=== PATIENT | female | born 1940 | race Caucasian/White ===

== ENCOUNTER 2021-02-12 08:14 | Inpatient (IN) ==
[2021-02-12] MEDS ORDERED: Haloperidol Lactate 5 MG/ML VIAL IVP ONE ×2 (08:43→16:19)
[2021-02-12 09:20] LABS: Amorphous Sediment,Urine Few per hpf (None-Few); Bilirubin,Urine Negative (Negative); Blood,Urine Negative (Negative); Clarity,Urine Turbid (Clear); Color,Urine Light-Yellow (Yellow); Glucose,Urine (UA) Normal (Normal); Ketones,Urine Negative (Negative); Leukocyte Esterase,Urine Negative (Negative); Nitrite,Urine Negative (Negative); Protein,Urine Trace mg/dL (Neg-Trace); Specific Gravity,Urine 1.014 (1.010-1.025); Urobilinogen,Urine Normal (Normal); WBC,Urine 0-3 per hpf (0-3)
[2021-02-12 09:21] LABS: Basophils % 0.5 %; Eosinophils % 0.2 %; Hematocrit 35.3 % (35.3-44.9); Hemoglobin 11.9 g/dL (11.5-15.4); Immature Granulocytes % 0.3 % (0-4); Lymphocytes # 0.4 K/mcL (0.6-4.6); Lymphocytes % 6.6 %; Mean Corpuscular HGB Conc 33.7 g/dL (31.6-35.5); Mean Corpuscular Hemoglobin 28.5 pg (28.0-33.3); Mean Corpuscular Volume 84.7 fL (83.0-100.0); Mean Platelet Volume 9.7 fL (9.4-12.4); Monocytes # 0.2 K/mcL (0.0-1.3); Monocytes % 3.2 %; Neutrophils # 5.8 K/mcL (1.6-8.9); Platelet Count 188 K/mcL (140-400); Red Blood Count 4.17 M/mcL (3.82-4.97); Segmented Neutrophils % 89.2 %; White Blood Count 6.5 K/mcL (4.3-11.1)
[2021-02-12 09:28] LABS: INR 1.2; Prothrombin Time 13.6 Seconds (9.4-12.1)
[2021-02-12 09:31] LABS: Activated Partial Thrombo Time 31.4 Seconds (26.0-36.0)
[2021-02-12 09:34] LABS: Alanine Aminotransferase 12 Units/L (7-52); Albumin 4.3 g/dL (3.5-5.7); Albumin/Globulin Ratio 1.7 (1.1-2.2); Alkaline Phosphatase 87 Units/L (34-104); Aspartate Amino Transferase 21 Units/L (13-39); BUN/Creatinine Ratio 19 (6-26); Bilirubin,Direct 0.1 mg/dL (0.0-0.2); Bilirubin,Indirect 0.4 mg/dL (0.0-1.0); Bilirubin,Total 0.5 mg/dL (0.3-1.0); Blood Urea Nitrogen 13 mg/dL (8-23); Calcium 9.1 mg/dL (8.6-10.3); Carbon Dioxide 24 mEq/L (23-29); Chloride 93 mEq/L (98-107); Globulin 2.6 g/dL (2.4-3.5); Glucose 151 mg/dL (70-105); Osmolality,Calculated 269 (280-300); Potassium 3.7 mEq/L (3.5-5.1); Sodium 128 mEq/L (136-145); Total Protein 6.9 g/dL (6.4-8.9); Troponin I 0.03 ng/mL (< 0.04); eGFR For African Americans > 60 (> 60); eGFR For Non-African Americans > 60 (> 60)
[2021-02-12 11:49] LABS: Influenza A PCR Negative (Negative); Influenza B PCR Negative (Negative); Resp. Syncytial Virus PCR Negative (Negative)
[2021-02-12 11:57] LABS: SARS-CoV-2 by PCR (In House) Negative (Negative)
[2021-02-12] MEDS ORDERED: cefTRIAXone 2,000 MG in 0.9 % Sodium Chloride Mini Bag 100 ML IVPB ONE (12:28)
[2021-02-12] MEDS ORDERED: Naloxone 0.4 MG/ML INJ IVP PRN (13:24)
[2021-02-12 14:29] LABS: Thyroid Stimulating Hormone 1.876 mcIU/mL (0.340-5.600)
[2021-02-12 14:44] LABS: Folate > 22.3 ng/mL (3.0-16.0); Vitamin B12 817 pg/mL (250-1100)
[2021-02-12] MEDS ORDERED: 0.9 % Sodium Chloride 1,000 ML IVC SCH (15:00)
[2021-02-12] MEDS ORDERED: Vancomycin (wt based) 1,000 MG VIAL IVPB SCH (15:00)
[2021-02-12] MEDS ORDERED: Acyclovir 550 MG in D5% in Water 250 ML IVPB SCH ×2 (16:00→23:00)
[2021-02-12] MEDS ORDERED: Acyclovir 750 MG in D5% in Water 250 ML IVPB SCH (16:00)
[2021-02-12] MEDS ORDERED: Ampicillin 2 MG in 0.9 % Sodium Chloride Mini Bag 100 ML IVPB SCH (16:00)
[2021-02-12] MEDS ORDERED: Ampicillin 2,000 MG in 0.9 % Sodium Chloride Mini Bag 100 ML IVPB SCH (16:00)
[2021-02-12] MEDS: Ampicillin 2,000 MG in 0.9 % Sodium Chloride Mini Bag 100 ML IVPB SCH ×2 (18:38→21:41)
[2021-02-12] MEDS ORDERED: Acetaminophen 325 MG TABLET PO PRN (21:08)
[2021-02-12] MEDS: 0.9 % Sodium Chloride 1,000 ML IVC SCH (21:40)
[2021-02-12] MEDS: *HR* Heparin 5,000 UNIT/ML VIAL SQ SCH (22:21)
[2021-02-12] MEDS: Haloperidol Lactate 5 MG/ML VIAL IM PRN (22:36)
[2021-02-13] MEDS ORDERED: Acetaminophen IV 500 MG/50 ML BAG IVPB ONE (03:29)
[2021-02-13] MEDS: cefTRIAXone 2,000 MG in Water for inj. (sterile) 10 ML IVP SCH ×2 (04:28→15:27)
[2021-02-13] MEDS: Ampicillin 2,000 MG in 0.9 % Sodium Chloride Mini Bag 100 ML IVPB SCH ×4 (04:41→23:03)
[2021-02-13 04:43] LABS: Magnesium 1.2 mg/dL (1.6-2.6); Phosphorous 1.9 mg/dL (2.7-4.5)
[2021-02-13] MEDS: *HR* Heparin 5,000 UNIT/ML VIAL SQ SCH ×3 (06:25→21:04)
[2021-02-13] MEDS ORDERED: Haloperidol Lactate 5 MG/ML VIAL IVP ONE (08:44)
[2021-02-13 10:51] LABS: Red Blood Cell,CSF < 2000 RBC/mcL
[2021-02-13 10:52] LABS: Appearance,CSF Clear (Clear)
[2021-02-13 11:11] LABS: Glucose,CSF 76 mg/dL (40-70); Total Protein,CSF 28 mg/dL (15-45)
[2021-02-13 11:49] LABS: Adenovirus Not Detected (Not Detect); Bordetella Pertussis Not Detected (Not Detect); Chlamydophila pneumoniae Not Detected (Not Detect); Coronavirus 229E Not Detected (Not Detect); Coronavirus HKU1 Not Detected (Not Detect); Coronavirus NL63 Not Detected (Not Detect); Coronavirus OC43 Not Detected (Not Detect); Human Metapneumovirus Not Detected (Not Detect); Human Rhinovirus/Enterovirus Not Detected (Not Detect); Influenza A Subtype 2009 H1 Not Detected (Not Detect); Influenza B Not Detected (Not Detect); Mycoplasma pneumoniae Not Detected (Not Detect); Parainfluenza Virus 1 Not Detected (Not Detect); Parainfluenza Virus 2 Not Detected (Not Detect); Parainfluenza Virus 3 Not Detected (Not Detect); Parainfluenza Virus 4 Not Detected (Not Detect); Respiratory Syncytial Virus Not Detected (Not Detect); SARS-CoV-2 Not Detected (Not Detect)
[2021-02-13 14:18] LABS: BUN/Creatinine Ratio 23 (6-26); Blood Urea Nitrogen 15 mg/dL (8-23); Carbon Dioxide 23 mEq/L (23-29); Chloride 97 mEq/L (98-107); Glucose 131 mg/dL (70-105); Osmolality,Calculated 275 (280-300); Potassium 2.7 mEq/L (3.5-5.1); Sodium 131 mEq/L (136-145); eGFR For African Americans > 60 (> 60); eGFR For Non-African Americans > 60 (> 60)
[2021-02-13] MEDS ORDERED: Potassium Chloride 40 MEQ, Lidocaine 1% 2 ML in 0.9 % Sodium Chloride 500 ML IVPB ONE (15:01)
[2021-02-13] MEDS ORDERED: Perflutren Lipid Microsphere 1.3 ML in 0.9 % Sodium Chloride 8.7 ML IVP PRN (15:05)
[2021-02-13] MEDS: Acyclovir 550 MG in D5% in Water 250 ML IVPB SCH (17:30)
[2021-02-13] MEDS: 0.9 % Sodium Chloride 1,000 ML IVC SCH ×2 (20:26→20:27)
[2021-02-13] MEDS: *HR* Metoprolol 5 MG/5 ML VIAL IVP PRN (21:03)
[2021-02-14] MEDS: Haloperidol Lactate 5 MG/ML VIAL IM PRN (01:56)
[2021-02-14] MEDS: *HR* Metoprolol 5 MG/5 ML VIAL IVP PRN (02:14)
[2021-02-14] MEDS: cefTRIAXone 2,000 MG in Water for inj. (sterile) 10 ML IVP SCH ×2 (03:43→16:32)
[2021-02-14] MEDS: Ampicillin 2,000 MG in 0.9 % Sodium Chloride Mini Bag 100 ML IVPB SCH ×2 (03:48→16:31)
[2021-02-14] MEDS: Acyclovir 550 MG in D5% in Water 250 ML IVPB SCH (03:49)
[2021-02-14] MEDS: Acetaminophen 325 MG TABLET PO PRN ×2 (04:59→22:08)
[2021-02-14] MEDS: *HR* Heparin 5,000 UNIT/ML VIAL SQ SCH ×3 (05:00→22:05)
[2021-02-14] MEDS ORDERED: *HR* Metoprolol 5 MG/5 ML VIAL IVP PRN (08:37)
[2021-02-14] MEDS: Metoprolol XL (24 HR) Succ 25 MG TAB.ER.24H PO SCH (14:45)
[2021-02-14 14:47] LABS: Basophils % 0.2 %
[2021-02-14 14:53] LABS: Hematocrit 34.9 % (35.3-44.9); Immature Granulocytes % 0.6 % (0-4)
[2021-02-14 14:54] LABS: Hemoglobin 11.9 g/dL (11.5-15.4); Immature Platelets 2.2 % (1.1-6.1); Lymphocytes # 0.9 K/mcL (0.6-4.6); Lymphocytes % 7.4 %; Mean Corpuscular HGB Conc 34.1 g/dL (31.6-35.5); Mean Corpuscular Hemoglobin 28.7 pg (28.0-33.3); Mean Corpuscular Volume 84.3 fL (83.0-100.0); Monocytes % 7.7 %; Neutrophils # 10.5 K/mcL (1.6-8.9); Platelet Count 151 K/mcL (140-400); Red Blood Count 4.14 M/mcL (3.82-4.97); Red Cell Distribution Width 12.3 % (11.5-14.5); Segmented Neutrophils % 84.1 %; White Blood Count 12.5 K/mcL (4.3-11.1)
[2021-02-14 15:26] LABS: BUN/Creatinine Ratio 22 (6-26); Blood Urea Nitrogen 15 mg/dL (8-23); Calcium 8.7 mg/dL (8.6-10.3); Carbon Dioxide 21 mEq/L (23-29); Chloride 102 mEq/L (98-107); Glucose 137 mg/dL (70-105); Magnesium 1.6 mg/dL (1.6-2.6); Osmolality,Calculated 281 (280-300); Phosphorous 1.6 mg/dL (2.7-4.5); Potassium 2.7 mEq/L (3.5-5.1); Sodium 134 mEq/L (136-145); eGFR For African Americans > 60 (> 60); eGFR For Non-African Americans > 60 (> 60)
[2021-02-14] MEDS: 0.9 % Sodium Chloride 1,000 ML IVC SCH (16:36)
[2021-02-14] MEDS ORDERED: Potassium Chloride Elixir 20 MEQ/15 ML UDC PO ONE (16:48)
[2021-02-14 17:04] LABS: Platelet Estimate Normal (Normal)
[2021-02-14] MEDS: Budesonide/Formoterol 80/4.5 1 PUFF INH IH SCH (20:20)
[2021-02-14] MEDS: QUEtiapine Fumarate 25 MG TABLET PO SCH (22:06)
[2021-02-14] MEDS: Rivastigmine Tartrate (oral) 1.5 MG CAPSULE PO SCH (22:07)
[2021-02-14] MEDS: (Colestipol Hcl [Colestid] 1 GM Tablet) PO SCH (22:22)
[2021-02-15] MEDS: 0.9 % Sodium Chloride 1,000 ML IVC SCH ×3 (04:16→20:05)
[2021-02-15] MEDS: cefTRIAXone 2,000 MG in Water for inj. (sterile) 10 ML IVP SCH (04:19)
[2021-02-15] MEDS: *HR* Heparin 5,000 UNIT/ML VIAL SQ SCH ×3 (06:45→21:04)
[2021-02-15] MEDS: Budesonide/Formoterol 80/4.5 1 PUFF INH IH SCH ×2 (07:50→20:46)
[2021-02-15] MEDS: Rivastigmine Tartrate (oral) 1.5 MG CAPSULE PO SCH ×2 (09:25→21:04)
[2021-02-15] MEDS: hydroCHLOROthiazide 25 MG TABLET PO SCH (09:26)
[2021-02-15] MEDS: Metoprolol XL (24 HR) Succ 25 MG TAB.ER.24H PO SCH (09:26)
[2021-02-15] MEDS: (Colestipol Hcl [Colestid] 1 GM Tablet) PO SCH ×2 (09:28→21:05)
[2021-02-15 10:45] LABS: Hematocrit 33.5 % (35.3-44.9); Hemoglobin 11.3 g/dL (11.5-15.4); Mean Corpuscular HGB Conc 33.7 g/dL (31.6-35.5); Mean Corpuscular Hemoglobin 28.5 pg (28.0-33.3); Mean Corpuscular Volume 84.4 fL (83.0-100.0); Mean Platelet Volume 9.5 fL (9.4-12.4); Platelet Count 189 K/mcL (140-400); Red Blood Count 3.97 M/mcL (3.82-4.97); Red Cell Distribution Width 12.5 % (11.5-14.5); White Blood Count 11.3 K/mcL (4.3-11.1)
[2021-02-15 10:54] LABS: BUN/Creatinine Ratio 18 (6-26); Blood Urea Nitrogen 12 mg/dL (8-23); Calcium 8.6 mg/dL (8.6-10.3); Carbon Dioxide 24 mEq/L (23-29); Chloride 103 mEq/L (98-107); Glucose 124 mg/dL (70-105); Osmolality,Calculated 279 (280-300); Potassium 2.7 mEq/L (3.5-5.1); Sodium 134 mEq/L (136-145); eGFR For African Americans > 60 (> 60); eGFR For Non-African Americans > 60 (> 60)
[2021-02-15] MEDS: QUEtiapine Fumarate 25 MG TABLET PO SCH (21:04)
[2021-02-16] MEDS: Acetaminophen 325 MG TABLET PO PRN (02:25)
[2021-02-16] MEDS ORDERED: *HR* LORazepam 2 MG/ML VIAL IVP ONE (03:26)
[2021-02-16] MEDS: *HR* Heparin 5,000 UNIT/ML VIAL SQ SCH (05:13)
[2021-02-16 08:00] VITALS: BP 136/79; PULSE 84; TEMP 98
[2021-02-16] MEDS: Budesonide/Formoterol 80/4.5 1 PUFF INH IH SCH (08:10)
[2021-02-16] MEDS: Metoprolol XL (24 HR) Succ 25 MG TAB.ER.24H PO SCH (09:25)
[2021-02-16] MEDS: hydroCHLOROthiazide 25 MG TABLET PO SCH (09:25)
[2021-02-16] MEDS: (Colestipol Hcl [Colestid] 1 GM Tablet) PO SCH (09:29)
[2021-02-16] MEDS: Rivastigmine Tartrate (oral) 1.5 MG CAPSULE PO SCH (09:29)
[2021-02-16 12:39] VITALS: O2SAT 95
[2021-02-16 13:13] LABS: Adenovirus Not Detected (Not Detect); Bordetella Pertussis Not Detected (Not Detect); Chlamydophila pneumoniae Not Detected (Not Detect); Coronavirus 229E Not Detected (Not Detect); Coronavirus HKU1 Not Detected (Not Detect); Coronavirus NL63 Not Detected (Not Detect); Coronavirus OC43 Not Detected (Not Detect); Human Metapneumovirus Not Detected (Not Detect); Human Rhinovirus/Enterovirus Not Detected (Not Detect); Influenza A Subtype 2009 H1 Not Detected (Not Detect); Influenza B Not Detected (Not Detect); Mycoplasma pneumoniae Not Detected (Not Detect); Parainfluenza Virus 1 Not Detected (Not Detect); Parainfluenza Virus 2 Not Detected (Not Detect); Parainfluenza Virus 3 Not Detected (Not Detect); Parainfluenza Virus 4 Not Detected (Not Detect); Respiratory Syncytial Virus Not Detected (Not Detect); SARS-CoV-2 Not Detected (Not Detect)
[2021-02-16 14:44] LABS: Enterovirus RNA Qual (PCR) NOT DETECTED
[2021-02-20 10:40] LABS: HSV 1 Glycoprotein G IgG CSF 0.08 IV (<=0.89)
== END 2021-02-16 14:00 | DRG 884 ==
LOC: 3ANU 08:14 → EMEROOARM 08:14 → SUATTDRO 17:48 → 3ANU 19:39 → SUATTDRO 02-14 16:34
PROVIDERS: ADMIT Internal Medicine; ATTEND Internal Medicine